=== PATIENT | female | born 1975 | race Caucasian/White ===

== ENCOUNTER 2016-12-30 15:28 | Emergency (ER) | payer OTHER ==
[~2016-12-30] VITALS: Ht 170.2 cm; Wt 133.8 kg
--- NOTE | 2016-12-30 16:01 | Urgent Treatment Center Report ---
History of Present Issue Date/Time Seen by Provider 12/30/16 1549 Visit Reason Pt arrived:Walked Presenting Problem:PT DX WITH BRONCHITIS ON SAT BUT FEELS IF IT IS GETTING WORSE. Location if Accident: Onset of symptoms date/time:/ or onset unknown for:MEDICAL HX UNKNOWN Have you (or family members/close friends) recently traveled outside the [place]? N If Yes, where/when: Have you had exposure to infectious disease within the past month? TB? Other? Specify: Patient states that she was recently diagnosed with bronchitis States that she was started on Cefdinir and just started on steroids yesterday States that she was worried that she may be getting worse so she came in today to get checked and see if she could get medication for nebulizer machine for breathing treatments to help her breath better ALLERGIES Coded Allergies: No Known Allergies (12/30/16) History Medical History General CAD? No Angina: No IA: No Hypertension? No Hyperlipidemia? No CHF? No DVT? No PE? No COPD? No Asthma? No Anemia? No GERD? No Gastric ulcers? No GI Bleed? No Hernia? No Thyroid Problems? No Hypothyroidism? No CVA? No Seizures? No Diabetes? No Renal Insuffiency? No UTI? No Stones? No BPH? No GB Disease: No Nephritic Syndrome? No Asplenia? No Hepatitis? No Sickle Cell Disease? No Arthritis? No Migraines? No Cataracts? No Glaucoma? No MRSA? No HIV? No TB? No Anxiety? No Depression? No Cancer? No More? No Immunization HX DT/Tetanus Unknown Surgical Hx Previous Surgery?Y LEEP PROCEDURE Social History Smoking Hx Smoker: Current Every Day Smoker Tobacco: Yes Type Cigarettes Packs/day < 1 Pack Alcohol Alcohol: No Review of Systems All Other Systems Reviewed and Negative Respiratory cough, wheezing Physical Exam Vital Signs Vital Signs Date Time Temp Pulse Resp B/P Pulse O2 O2 Flow FiO2 Ox Delivery Rate 12/30 1541 98.2 70 18 148/94 96 General Appearance normal appearance, WD/WN, no apparent distress Ear, Nose, Throat throat slightly red, drainage noted Respiratory Status Yes: trachea midline, chest symmetrical, non tender chest. No: respiratory distress. Lung Sounds bilateral: rhonchi, wheezing. 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 No Results/Orders Current Medication Orders Sig/Amando Start time Last Medication Dose Route Stop Time Status Admin Albuterol/Ipratropium 3 ML ONCE ONE 12/30 1630 DC 12/30 INH 12/30 1631 1631 Orders Procedure Date/time Status RT REQUEST DUONEB 12/30 1620 Active CHEST(2 VIEWS-NOT PORTABLE) 12/30 1541 Active Departure Departure Time of Disposition 1647 Disposition DC Home or Self Care(routine) Clinical Impression Primary Impression: Bronchitis Condition STABLE Referrals Willis Gonzalez MD (Family): 3 Days-Call Office Patient Instructions DI for Acute Bronchitis Additional Instructions Use Albuteral nebulizer treatments every four to six hours as needed Follow up with family doctor REturn if needed * Monitor Temp. Tylenol and/or Ibuprofen as needed. ER if fever is no less than 101 despite alternating Tylenol and Ibuprofen * Encourage fluids, water, Gatorade, powerade, pedialyte if infant/toddler/or child * Warm salt water gargles for throat irritation *Warm fluids *Sore throat lozenges *Sleep elevated Discharge Counseling Counseled pt/family regarding diagnosis, test results, medications/RX, home care, follow up needs Prescriptions Current Visit Scripts ALBUTEROL (Albuterol 0.083% Neb) 2.5 MG INH Q4HP PRN soa #30 VIAL at 1645
[2016-12-30] MEDS ORDERED: ALBUTEROL2.5 MG/NEB INH (16:26)
[2016-12-30 16:50] VITALS: BP 148/94
--- NOTE | 2016-12-31 05:47 | RADIOLOGY REPORT PS360 ---
CHEST(2 VIEWS-NOT PORTABLE) HISTORY: Cough and shortness of breath, congestion, smoker DX WITH BRONCHITIS WED. FEELS WORSE ORDERING PHYSICIAN: ANKITA WALDRON APRN PATIENT AGE: 41 years COMPARISON: 07/03/2016 FINDINGS: Unremarkable cardiovascular structures. No lobar consolidation or collapse. Lungs are clear of acute infiltrate. No acute bony anomalies. There is some increased density in the right paratracheal region at the azygos area and may be related to prominence of the azygos vein. Mild adenopathy is a consideration as well. No acute bony anomalies. IMPRESSION: 1. No definite acute finding. 2. Possible mild mediastinal adenopathy. Recommend follow-up to confirm stability or resolution
== END 2016-12-30 16:51 | disposition home or self-care (01) ==
LOC: UTC 15:28
DX: J40 Bronchitis, not specified as acute or chronic (principal); F17.210 Nicotine dependence, cigarettes, uncomplicated